=== PATIENT | male | born 1990 | race Caucasian/White ===

== ENCOUNTER 2017-08-29 21:09 | Emergency (ER) | payer OTHER ==
[~2017-08-29] VITALS: Ht 170.2 cm; Wt 86.4 kg
[2017-08-29] MEDS ORDERED: ACETAMINOPHEN 500 MG TABLET PO ONE (22:15)
[2017-08-29] MEDS ORDERED: ONDANSETRON HCL 4 MG TABLET PO ONE (22:15)
[2017-08-29 23:05] VITALS: BP 120/73
== END 2017-08-29 23:08 | disposition home or self-care (01) ==
LOC: EMS 21:10
DX: S09.90XA Unspecified injury of head, initial encounter (principal); R11.0 Nausea; J45.909 Unspecified asthma, uncomplicated; F17.210 Nicotine dependence, cigarettes, uncomplicated; W18.49XA Other slipping, tripping and stumbling without falling, initial encounter; Y93.89 Activity, other specified; Y92.89 Other specified places as the place of occurrence of the external cause; Y99.8 Other external cause status
CPT/HCPCS: 70450; 99284; Q0162

== ENCOUNTER 2021-12-26 17:15 | Emergency (ER) | payer OTHER ==
[~2021-12-26] VITALS: Ht 170.2 cm; Wt 93.2 kg
[2021-12-26] MEDS ORDERED: CYCL-448 PO (19:29)
[2021-12-26 19:48] VITALS: BP 132/75
== END 2021-12-26 19:55 | disposition home or self-care (01) ==
LOC: EMS 17:17
DX: M54.50 Low back pain, unspecified (principal); J45.909 Unspecified asthma, uncomplicated; Z98.890 Other specified postprocedural states; V89.2XXA Person injured in unspecified motor-vehicle accident, traffic, initial encounter; Y93.89 Activity, other specified; Y92.89 Other specified places as the place of occurrence of the external cause; Y99.8 Other external cause status
CPT/HCPCS: 72100; 99283

== ENCOUNTER 2024-11-05 23:22 | Emergency (ER) | payer OTHER ==
[~2024-11-05] VITALS: Ht 170.2 cm; Wt 104.0 kg
[~2024-11-05 23:22] MED LIST: CYCL-448 PO
[2024-11-06 00:01] VITALS: TEMP 98.6
[2024-11-06 00:34] LABS: PLATELET COUNT (AUTO) 315 K/uL (150-450); RED BLOOD CELL COUNT(AUTO) 5.46 MIL/uL (4.50-5.90); RED CELL DISTRIBUTION WIDTH 13.0 % (11.5-14.5); WHITE BLOOD COUNT (AUTO) 9.2 K/uL (4.5-11.0)
[2024-11-06 00:41] LABS: CALCIUM, TOTAL 9.8 mg/dL (8.8-10.5); CREATININE 1.13 mg/dL (0.60-1.30); GLOMERULAR FILTR. RATE CALC > 60 mL/min (>60); GLUCOSE,RANDOM 110 mg/dL (70-110); SODIUM SERUM 141 mmol/L (136-145); UREA NITROGEN, BLOOD 7 mg/dL (7-18)
[2024-11-06 00:47] LABS: ASPARTATE AMINOTRANSFERASE 29.0 U/L (15-37); TOTAL PROTEIN, SERUM 7.3 g/dL (6.4-8.2)
[2024-11-06 00:49] LABS: TROPONIN I-HIGH SENSITIVITY 6 ng/L (<76)
[2024-11-06 02:05] VITALS: BP 140/92; PULSE 91; RESP 15; O2SAT 97
== END 2024-11-06 02:17 | disposition home or self-care (01) ==
LOC: EMS 11-06 00:11
DX: I10 Essential (primary) hypertension (principal); R07.89 Other chest pain; E78.5 Hyperlipidemia, unspecified; E78.00 Pure hypercholesterolemia, unspecified; J45.909 Unspecified asthma, uncomplicated; Z98.890 Other specified postprocedural states; Z79.899 Other long term (current) drug therapy
CPT/HCPCS: 71045; 80048; 80076; 84484; 85025; 93005; 99285; 36415-L1; 36415-TC